=== PATIENT | female | born 1955 | race Two or more races ===

== ENCOUNTER 2025-04-24 10:44 | Inpatient (IN) | payer OTHER ==
[~2025-04-24] VITALS: Ht 157.5 cm; Wt 66.2 kg
[2025-04-24] MEDS ORDERED: LEVOTHYROXINE25 MCG (11:21)
[2025-04-24 11:49] LABS: BASO % 0.4 % (0.1-1.2); EOS # 0.23 (0.04-0.54); EOS % 1.9 % (0.7-7.0); LYMPH # 1.39 (1.18-3.74); LYMPH % 11.4 % (19.3-53.1); MEAN PLATELET VOLUME 9.10 fl (9.4-12.4); MONO # 0.89 (0.24-0.82); MONO % 7.3 % (4.7-12.5); NEUT # 9.57 (1.56-6.13); NEUT % 78.4 % (34.0-71.1); RED CELL DISTRIBUTION WIDTH 16.2 % (11.6-14.4)
[2025-04-24 12:04] LABS: INR 1.0
[2025-04-24 12:49] LABS: ALT/SGPT 34.0 U/L (12-78); AST/SGOT 48.0 U/L (15-37); BILIRUBIN TOTAL 0.36 mg/dL (0.3-1.2); BUN CREA RATIO 25.0 (7.0-25.0); CREATININE SERUM 1.07 mg/dL (0.55-1.02); GFR 50.55; GLOBULINA 3.2 G/DL (2.4-3.5); GLUCOSE FASTING 100.0 mg/dL (65-100); OSMOLALITY SERUM 290.0 MOSM/KG (275-295); PHOSPHOKINASE CREATININE 254.0 U/L (26-192)
[2025-04-24 13:00] LABS: URINE APPEARANCE Clear; URINE BILIRRUBIN Negative (NEGATIVE); URINE BLOOD Negative; URINE COLOR Yellow; URINE GLUCOSE Negative (NEGATIVE); URINE KETONE Negative (NEGATIVE); URINE LEUKOCYTE Moderate; URINE NITRATE Negative; URINE PROTEIN Trace (NEGATIVE); URINE UROBILINOGEN 0.2 E.U./dl
[2025-04-24 13:03] LABS: URINE BACTERIA 20.3 uL (0.0-1933); URINE EPITHELIAL CELLS 17.0 uL (0.0-38.8); URINE RBC 8.6 uL (0.0-20.8); URINE WBC 24.4 uL (0.0-23.2)
[2025-04-24 13:05] LABS: URINE CAST 1.02 uL (0.0-1.40)
[2025-04-24 13:12] LABS: COVID-19 AG NEGATIVE (NEGATIVE)
[2025-04-24] MEDS ORDERED: 0.9 % SODIUM CHLORIDE 1,000 ML IV ONE (13:30)
[2025-04-24] MEDS ORDERED: CEFTRIAXONE SODIUM 1,000 MG VIAL IV ONE (13:30)
[2025-04-24] MEDS ORDERED: 0.9 % SODIUM CHLORIDE 1,000 ML IV SCH (18:15)
[2025-04-24] MEDS ORDERED: CEFTRIAXONE SODIUM 2,000 MG in 0.9 % SODIUM CHLORIDE 100 ML IV SCH (18:16)
[2025-04-24] MEDS ORDERED: FAMOTIDINE/PF 20 MG in 0.9 % SODIUM CHLORIDE 8 ML IV PUSH SCH (18:16)
[2025-04-24] MEDS ORDERED: ATORVASTATIN CALCIUM 40 MG TABLET PO SCH (18:19)
[2025-04-24] MEDS ORDERED: ASPIRIN 81 MG TAB.CHEW PO SCH (18:19)
[2025-04-24] MEDS ORDERED: ACETAMINOPHEN 500 MG GEL..CAP PO PRN (18:30)
[2025-04-24 20:40] VITALS: BP 108/1
[2025-04-24 22:37] VITALS: BP 128/72; O2SAT 100
[2025-04-25] VITALS (8 sets, daily range): BP systolic 117–155; BP diastolic 69–70; O2SAT 90–100
[2025-04-25] MEDS ORDERED: LEVOTHYROXINE SODIUM 25 MCG TABLET PO SCH (06:00)
[2025-04-26 00:46] VITALS: BP 107/61; O2SAT 98
[2025-04-26 05:18] VITALS: O2SAT 95
[2025-04-26 09:37] VITALS: BP 115/75; O2SAT 96
[2025-04-26 10:22] VITALS: O2SAT 98
[2025-04-26 13:48] VITALS: O2SAT 90
[2025-04-26] MEDS ORDERED: ADULT ASPIRIN81 MG PO (14:58)
[2025-04-26] MEDS ORDERED: LEVOTHYROXINE25 MCG PO (14:58)
[2025-04-26] MEDS ORDERED: LIPITOR40 M1 PO (14:58)
== END 2025-04-26 15:36 | disposition home or self-care (01) | DRG 312 ==
LOC: ER 10:44 → MEDI 18:25
PROVIDERS: General Practice; ADMIT Internal Medicine; ATTEND Internal Medicine
PROC: B020ZZZ Computerized Tomography (CT Scan) of Brain (ICD-10-PCS; principal; 2025-04-24)
PROC: B246ZZZ Ultrasonography of Right and Left Heart (ICD-10-PCS; 2025-04-24)
PROC: B030ZZZ Magnetic Resonance Imaging (MRI) of Brain (ICD-10-PCS; 2025-04-24)
PROC: B345ZZZ Ultrasonography of Bilateral Common Carotid Arteries (ICD-10-PCS; 2025-04-24)
PROC: B348ZZZ Ultrasonography of Bilateral Internal Carotid Arteries (ICD-10-PCS; 2025-04-24)
PROC: 4A12X4Z Monitoring of Cardiac Electrical Activity, External Approach (ICD-10-PCS; 2025-04-25)
DX: R55 Syncope and collapse (principal); N39.0 Urinary tract infection, site not specified; C79.51 Secondary malignant neoplasm of bone; N17.9 Acute kidney failure, unspecified; C50.911 Malignant neoplasm of unspecified site of right female breast; D63.0 Anemia in neoplastic disease; E86.0 Dehydration; I65.23 Occlusion and stenosis of bilateral carotid arteries; E03.9 Hypothyroidism, unspecified; Z92.21 Personal history of antineoplastic chemotherapy
CPT/HCPCS: 70551